=== PATIENT | male | born 1990 | race Caucasian/White ===

== ENCOUNTER 2020-07-10 16:47 | Emergency (ER) | payer SELFPAY ==
--- NOTE | ~2020-07-10 | XR_ITS ---
XR shoulder LT min 2V 07/10/2020 17:32 Indication: Possible shoulder dislocation. Left shoulder pain. Procedure: 2 views of the left shoulder including attempted AP and Y views. Study limited by patient immobility. Comparison: No prior studies Findings: There is probable posterior shoulder dislocation at the glenohumeral joint. No gross fractu re is identified. Acromioclavicular joint is grossly intact. Impression: 1: Probable posterior shoulder dislocation. Limited study due to immobility. Reviewed, dictated and finalized at location A. Impression: 1: Probable posterior shoulder dislocation. Limited study due to immobility.
--- NOTE | ~2020-07-10 | XR_ITS ---
XR shoulder LT min 2V 07/10/2020 18:08 Indication: Post reduction Procedure: 2 views left shoulder Comparison: 07/10/2020 Findings: There is persistent internal rotation of the humerus. There is improved alignment compared with prior examination with possible persistence posterior subluxation. No gross fracture is identifi ed. Acromioclavicular joint rate identified. Impression: 1: Improved alignment with possible persistent posterior subluxation of the humeral head. Reviewed, dictated and finalized at location A. Impression: 1: Improved alignment with possible persistent posterior subluxation of the hum eral head.
[2020-07-10 17:04] VITALS: BP 145/85; PULSE 91; RESP 18; TEMP 36.8; O2SAT 100
--- NOTE | 2020-07-10 17:50 | ED.UPPEXIN ---
HPI - Extremity Injury (Upper) General Chief Complaint: Extremity Injury, Upper Stated Complaint: possible left shoulder dislocation Time Seen by Provider: 07/10/20 17:45 Source: patient Mode of arrival: ambulatory Limitations: no limitations History of Present Illness HPI narrative: 30 years old white male presents with dislocated left shoulder. Patient was throwing and I will out of the car window, dislocated his shoulder. History of left shoulder dislocation. Patient declined any pain medication and he would like somebody to put the shoulder back as soon as possible. Related Data Home Medications Medication Instructions Recorded Confirmed No Home Medications 07/10/20 07/10/20 Allergies Allergy/AdvReac Type Severity Reaction Status Date / Time No Known Allergies Allergy Verified 07/10/20 17:49 Review of Systems Review of Systems: Narrative: CONSTITUTIONAL: Denies fever, chills, or sweats. EYES: Denies visual changes, redness, or discharge. ENT: Denies rhinorrhea, congestion, sore throat, or otalgia. CARDIOVASCULAR: Denies chest pain, palpitations, or edema. RESPIRATORY: Denies cough or dyspnea. GASTROINTESTINAL: Denies abdominal pain, nausea, vomiting, or diarrhea. GENITOURINARY: Denies dysuria or hematuria. SKIN: Denies rash or itching. MUSCULOSKELETAL: Denies back pain, joint pain, or myalgia. NEUROLOGIC: Denies headache, numbness, or weakness. PSYCHIATRIC: Denies anxiety or depression. Exam Narrative: Exam Narrative: General appearance: Well-developed, well-nourished Skin: Normal color Head: Normocephalic, nontraumatic Chest and respiratory: Airway patent, no respiratory distress, no accessory muscle use Heart: Regular rate/rhythm Vascular: Normal peripheral pulses, normal capillary refill. Musculoskeletal: Left shoulder deformity and diffuse tenderness Neurologic: Alert and oriented ?3, IMAGING SCIENCE PROFESSOR is normal as tested, no gross motor deficit Course Course Emergency Course: Resolved Currently patient is asymptomatic Vital Signs Vital signs: Vital Signs Temperature 36.8 C 07/10/20 17:04 Pulse Rate 91 07/10/20 17:04 Respiratory Rate 18 07/10/20 17:04 Blood Pressure 145/85 H 07/10/20 17:04 Pulse Oximetry 100 07/10/20 17:04 Temperature 36.8 C 07/10/20 17:04 Pulse Rate 91 07/10/20 17:04 Respiratory Rate 18 07/10/20 17:04 Blood Pressure 145/85 H 07/10/20 17:04 Pulse Oximetry 100 07/10/20 17:04 Procedures Orthopedic Joint Reduction Left shoulder: Orthopedic Joint Reduction Date: 07/10/20 Orthopedic Joint Reduction Time: 18:02 Time Out Performed: Yes Side: left Joint Reduction Location: shoulder Analgesia: none Pre-Procedure Neuro Vascular Exam: normal Shoulder Technique Used (if applicable): external rotation Post-reduction neuro exam: intact Post-reduction vascular: intact Post Reduction X-Ray Obtained: Yes Post Reduction X-Ray Results: reduced Splint Applied: Yes Patient Tolerated Procedure: well MDM - Extremity Injury (Upper) MDM Narrative Medical decision making narrative: Patient dislocated his left shoulder throwing and I will out of the window of the car. Reduction done without pain medication or sedation. Repeated x-ray showed closed reduction without any complication. Shoulder immobilizer placed, patient to follow-up with orthopedic Differential Diagnosis Differential diagnosis: Likely dislocation of shoulder Critical Care Time Critical Care Time Critical Care Time: No Discharge Plan Discharge Clinical Impression: Dislocation of shoulder region Qualifiers: Encounter type: initial encou
== END 2020-07-10 19:25 | disposition home or self-care (01) ==
PROVIDERS: Emergency Provider Emergency Medicine
DX: S43.025A Posterior dislocation of left humerus, initial encounter (principal); X50.9XXA Other and unspecified overexertion or strenuous movements or postures, initial encounter
CPT/HCPCS: 23650; 73030; 99285